=== PATIENT | female | born 1990 | race African-American/Black ===

== ENCOUNTER 2017-10-06 04:02 | Emergency (ER) | payer MEDICAID | END 2017-10-06 05:04 | disposition home or self-care (01) | LOC: D.ER 04:02 | DX: G56.01 Carpal tunnel syndrome, right upper limb (principal) ==

== ENCOUNTER 2017-11-14 09:08 | Emergency (ER) | payer MEDICAID | END 2017-11-14 09:57 | disposition left against medical advice (07) | LOC: D.ER 09:08 | DX: R51 Headache (principal) ==

== ENCOUNTER 2018-05-31 11:50 | Emergency (ER) | payer MEDICAID ==
[~2018-05-31] VITALS: Ht 165.1 cm; Wt 113.6 kg
[2018-05-31 11:56] VITALS: BP 139/90; Ht 165.1 cm; Wt 113.6 kg
[2018-05-31] MEDS ORDERED: AMOXICILLIN500 M1 PO (11:57)
[2018-05-31] MEDS ORDERED: PREDNISONE5 MG PO (11:58)
[2018-05-31 12:24] LABS: BASOPHILS 0.2 % (0-2); EOSINOPHILS 0 % (0-7); HEMATOCRIT 35.7 % (36.0-48.0); HEMOGLOBIN 11.8 g/dL (12-16); IMMATURE GRANULOCYTES 0.2 % (0-5); LYMPHOCYTES 8.7 % (15-50); MCH 24.7 pg (26.0-34.0); MCHC 33.1 g/dL (31.0-37.0); MCV 74.8 fL (80.0-100.0); MEAN PLATELET VOLUME 9.8 fL (7.4-10.4); MONOCYTES 9.3 % (2-11); NEUTROPHILS 81.6 % (40-80); RBC 4.77 10x6/uL (4.00-5.40); RDW 14.9 % (11.5-14.5); WBC 5.2 10x3/uL (4.8-10.8)
[2018-05-31 12:25] LABS: PLATELET COUNT 171 10x3/uL (130-400)
[2018-05-31 12:39] LABS: ALBUMIN 3.5 g/dL (3.4-5.0); ALKALINE PHOSPHATASE 52 U/L (46-116); ALT (SGPT) 20 U/L (10-68); BILIRUBIN - TOTAL 0.26 mg/dL (0.2-1.3); CALC OSMOLALITY 271 mosm/kg (275-300); CALCIUM 8.9 mg/dL (8.5-10.1); CARBON DIOXIDE 24.6 mmol/L (21.0-32.0); CHLORIDE - SERUM 102 mmol/L (98-107); CREATININE - SERUM 0.7 mg/dL (0.6-1.3); GLUCOSE 91 mg/dL (74-106); POTASSIUM - SERUM 3.8 mmol/L (3.5-5.1); PROTEIN - SERUM 7.6 g/dL (6.4-8.2); SODIUM 137 mmol/L (136-145); UREA NITROGEN 8 mg/dL (7-18); eGFR NON AFRICAN AMERICAN > 90 mL/min (90-120)
[2018-06-01] MEDS ORDERED: TAMIFLU75 MG PO (07:25)
[2018-06-01] MEDS ORDERED: ALBUTEROL SULF8.5 GM INH (07:25)
== END 2018-05-31 15:55 | disposition left against medical advice (07) ==
LOC: D.ER 11:50
PROVIDERS: Family Medicine
DX: J02.9 Acute pharyngitis, unspecified (principal); M79.18 Myalgia, other site; R05 Cough

== ENCOUNTER 2018-06-01 05:15 | Emergency (ER) | payer MEDICAID ==
[~2018-06-01] VITALS: Ht 165.1 cm; Wt 152.7 kg
[~2018-06-01 05:15] MED LIST: AMOXICILLIN500 M1 PO; PREDNISONE5 MG PO
[2018-06-01 05:22] VITALS: Ht 165.1 cm; Wt 152.7 kg
[2018-06-01 06:13] LABS: BASOPHILS 0 % (0-2); EOSINOPHILS 0 % (0-7); HEMATOCRIT 34.8 % (36.0-48.0); HEMOGLOBIN 11.3 g/dL (12-16); IMMATURE GRANULOCYTES 0.2 % (0-5); LYMPHOCYTES 15.9 % (15-50); MCH 24.4 pg (26.0-34.0); MCHC 32.5 g/dL (31.0-37.0); MEAN PLATELET VOLUME 10.3 fL (7.4-10.4); MONOCYTES 9.8 % (2-11); NEUTROPHILS 74.1 % (40-80); PLATELET COUNT 166 10x3/uL (130-400); RBC 4.64 10x6/uL (4.00-5.40); RDW 14.9 % (11.5-14.5); WBC 4.1 10x3/uL (4.8-10.8)
[2018-06-01 06:24] LABS: ALBUMIN 3.3 g/dL (3.4-5.0); ALKALINE PHOSPHATASE 47 U/L (46-116); ALT (SGPT) 17 U/L (10-68); BILIRUBIN - TOTAL 0.18 mg/dL (0.2-1.3); CALC OSMOLALITY 271 mosm/kg (275-300); CALCIUM 8.6 mg/dL (8.5-10.1); CHLORIDE - SERUM 101 mmol/L (98-107); CREATININE - SERUM 0.8 mg/dL (0.6-1.3); GLUCOSE 98 mg/dL (74-106); POTASSIUM - SERUM 3.8 mmol/L (3.5-5.1); PROTEIN - SERUM 7.3 g/dL (6.4-8.2); SODIUM 137 mmol/L (136-145); UREA NITROGEN 8 mg/dL (7-18); eGFR NON AFRICAN AMERICAN 90 mL/min (90-120)
[2018-06-01] MEDS ORDERED: ALBUTEROL SULF8.5 GM INH (07:25)
[2018-06-01] MEDS ORDERED: TAMIFLU75 MG PO (07:25)
[2018-06-01 07:39] VITALS: BP 104/67
== END 2018-06-01 07:40 | disposition home or self-care (01) ==
LOC: D.ER 05:15
PROVIDERS: Family Medicine
DX: J45.909 Unspecified asthma, uncomplicated (principal); R05 Cough; J11.1 Influenza due to unidentified influenza virus with other respiratory manifestations; F17.200 Nicotine dependence, unspecified, uncomplicated

== ENCOUNTER 2018-08-11 00:26 | Emergency (ER) | payer SELFPAY ==
[~2018-08-11] VITALS: Ht 165.1 cm; Wt 113.4 kg
[~2018-08-11 00:26] MED LIST changes: +ALBUTEROL SULF8.5 GM INH; +TAMIFLU75 MG PO
[2018-08-11 00:30] VITALS: Ht 165.1 cm; Wt 113.4 kg
[2018-08-11] MEDS ORDERED: KEFLEX500 MG PO (00:44)
[2018-08-11] MEDS ORDERED: TESSALON PERLE100 MG PO (00:44)
[2018-08-11 01:03] VITALS: BP 148/97
== END 2018-08-11 01:03 | disposition home or self-care (01) ==
LOC: D.ER 00:26
DX: J06.9 Acute upper respiratory infection, unspecified (principal); R05 Cough

== ENCOUNTER 2019-02-27 01:41 | Emergency (ER) | payer MEDICAID ==
[~2019-02-27] VITALS: Ht 165.1 cm; Wt 162.3 kg
[~2019-02-27 01:41] MED LIST changes: +KEFLEX500 MG PO; +TESSALON PERLE100 MG PO
[2019-02-27 01:45] VITALS: Ht 165.1 cm; Wt 162.3 kg
[2019-02-27 02:54] LABS: BASOPHILS 0.2 % (0-2); EOSINOPHILS 0.5 % (0-7); HEMATOCRIT 35.9 % (36.0-48.0); IMMATURE GRANULOCYTES 0.3 % (0-5); LYMPHOCYTES 45.4 % (15-50); MCH 24.7 pg (26.0-34.0); MCHC 33.4 g/dL (31.0-37.0); MONOCYTES 6.9 % (2-11); NEUTROPHILS 46.7 % (40-80); PLATELET COUNT 183 10x3/uL (130-400); RBC 4.85 10x6/uL (4.00-5.40); RDW 14.6 % (11.5-14.5); WBC 5.8 10x3/uL (4.8-10.8)
[2019-02-27 03:10] LABS: ALBUMIN 3.2 g/dL (3.4-5.0); ANION GAP 12.9 mmol/L (8-16); BILIRUBIN - TOTAL 0.2 mg/dL (0.2-1.3); CALCIUM 8.8 mg/dL (8.5-10.1); CARBON DIOXIDE 25.7 mmol/L (21.0-32.0); POTASSIUM - SERUM 3.6 mmol/L (3.5-5.1); PROTEIN - SERUM 7.4 g/dL (6.4-8.2)
[2019-02-27 04:03] LABS: HCG URINE NEGATIVE (NEGATIVE)
[2019-02-27] MEDS ORDERED: CLEOCIN HCL300 MG PO (05:50)
[2019-02-27] MEDS ORDERED: DIFLUCAN100 MG PO (05:50)
[2019-02-27 07:05] VITALS: BP 119/67
== END 2019-02-27 07:06 | disposition home or self-care (01) ==
LOC: D.ER 01:41
PROVIDERS: Family Medicine
DX: L03.113 Cellulitis of right upper limb (principal)

== ENCOUNTER 2020-04-01 18:44 | Emergency (ER) | payer MEDICAID ==
[~2020-04-01] VITALS: Ht 165.1 cm; Wt 172.7 kg
[~2020-04-01 18:44] MED LIST changes: +CLEOCIN HCL300 MG PO; +DIFLUCAN100 MG PO
[2020-04-01 19:31] VITALS: Ht 165.1 cm; Wt 172.7 kg
[2020-04-01 20:14] LABS: BASOPHILS 0.2 % (0-2); EOSINOPHILS 1.1 % (0-7); HEMATOCRIT 37.8 % (36.0-48.0); HEMOGLOBIN 12.1 g/dL (12-16); IMMATURE GRANULOCYTES 0.2 % (0-5); LYMPHOCYTES 42.5 % (15-50); MCH 25.2 pg (26.0-34.0); MCV 78.6 fL (80.0-100.0); MEAN PLATELET VOLUME 10.3 fL (7.4-10.4); MONOCYTES 5.7 % (2-11); NEUTROPHILS 50.3 % (40-80); PLATELET COUNT 218 10x3/uL (130-400); RBC 4.81 10x6/uL (4.00-5.40); RDW 14.7 % (11.5-14.5); WBC 5.4 10x3/uL (4.8-10.8)
[2020-04-01 20:38] LABS: ANION GAP 8.1 mmol/L (8-16); CALCIUM 8.8 mg/dL (8.5-10.1); CARBON DIOXIDE 26.6 mmol/L (21.0-32.0); CREATININE - SERUM 1.1 mg/dL (0.6-1.3); POTASSIUM - SERUM 3.7 mmol/L (3.5-5.1)
[2020-04-01 20:43] LABS: ALBUMIN 3.5 g/dL (3.4-5.0); BILIRUBIN - TOTAL 0.13 mg/dL (0.2-1.3); PROTEIN - SERUM 7.4 g/dL (6.4-8.2)
[2020-04-01] MEDS ORDERED: DICLOFENAC SODI50 MG PO (20:47)
[2020-04-01 21:31] VITALS: BP 159/110
== END 2020-04-01 21:22 | disposition home or self-care (01) ==
LOC: D.ER 18:44
PROVIDERS: Family Medicine
DX: R60.9 Edema, unspecified (principal); M79.604 Pain in right leg; M79.605 Pain in left leg; R20.2 Paresthesia of skin; J45.909 Unspecified asthma, uncomplicated

== ENCOUNTER → 2020-04-08 12:35 | Outpatient (CLI) | payer MEDICAID ==
[2020-04-01 19:31] VITALS: BMI 63.3
[~2020-04-08 12:35] MED LIST changes: +DICLOFENAC SODI50 MG PO
== END | disposition home or self-care (01) ==
LOC: D.RAD 12:35
PROVIDERS: ATTEND Emergency Medicine
DX: E66.01 Morbid (severe) obesity due to excess calories (principal); M25.569 Pain in unspecified knee; J45.909 Unspecified asthma, uncomplicated; I12.9 Hypertensive chronic kidney disease with stage 1 through stage 4 chronic kidney disease, or unspecified chronic kidney disease; N18.9 Chronic kidney disease, unspecified

== ENCOUNTER 2020-12-18 13:26 | Emergency (ER) | payer OTHER ==
[~2020-12-18] VITALS: Ht 165.1 cm; Wt 170.0 kg
[2020-12-18 13:30] VITALS: BP 155/76; Ht 165.1 cm; Wt 170.0 kg
[2020-12-18 14:40] LABS: BASOPHILS 1.1 % (0-2); EOSINOPHILS 1.2 % (0-7); HEMATOCRIT 37.8 % (36.0-48.0); HEMOGLOBIN 11.9 g/dL (12-16); MCH 25.5 pg (26.0-34.0); MCHC 31.3 g/dL (31.0-37.0); MCV 81.5 fL (80.0-100.0); MEAN PLATELET VOLUME 8.1 fL (7.4-10.4); NEUTROPHILS 60.7 % (40-80); PLATELET COUNT 231 10x3/uL (130-400); RBC 4.64 10x6/uL (4.00-5.40); RDW 15.4 % (11.5-14.5); WBC 4.9 10x3/uL (4.8-10.8)
[2020-12-18 15:18] LABS: CALC OSMOLALITY 278 mosm/kg (275-300); CALCIUM 8.9 mg/dL (8.5-10.1); CARBON DIOXIDE 26.5 mmol/L (21.0-32.0); CHLORIDE - SERUM 107 mmol/L (98-107); CREATININE - SERUM 0.9 mg/dL (0.6-1.3); GLUCOSE 91 mg/dL (74-106); SODIUM 140 mmol/L (136-145); UREA NITROGEN 12 mg/dL (7-18); eGFR NON AFRICAN AMERICAN 77 mL/min (90-120)
[2020-12-18 15:20] LABS: ALBUMIN 3.3 g/dL (3.4-5.0); ALKALINE PHOSPHATASE 69 U/L (30-120); ALT (SGPT) 25 U/L (10-68); PROTEIN - SERUM 7.3 g/dL (6.4-8.2)
[2020-12-18] MEDS ORDERED: ZANAFLEX4 MG PO (15:59)
[2020-12-18] MEDS ORDERED: DICLOFENAC SODI50 MG PO (15:59)
== END 2020-12-18 16:17 | disposition home or self-care (01) ==
LOC: D.ER 13:26
PROVIDERS: Family Medicine
DX: S29.012A Strain of muscle and tendon of back wall of thorax, initial encounter (principal); V49.9XXA Car occupant (driver) (passenger) injured in unspecified traffic accident, initial encounter; S16.1XXA Strain of muscle, fascia and tendon at neck level, initial encounter; S09.8XXA Other specified injuries of head, initial encounter; I10 Essential (primary) hypertension; J45.909 Unspecified asthma, uncomplicated